=== PATIENT | female | born 1990 | race Hispanic/Latino ===

== ENCOUNTER 2017-07-04 11:05 | Outpatient (CLI) | payer OTHER | END 2017-07-04 11:06 | disposition home or self-care (01) | LOC: BICULT 11:05 | PROVIDERS: ATTEND Family Medicine | DX: R10.32 Left lower quadrant pain (principal); N88.8 Other specified noninflammatory disorders of cervix uteri; R60.0 Localized edema | CPT/HCPCS: 76856 ==